=== PATIENT | female | born 1995 | race Asian ===

== ENCOUNTER 2016-06-01 16:25 | Outpatient (CLI) | payer OTHER ==
[2016-06-01 16:40] VITALS: BMI 36.2
[2016-06-01 18:10] LABS: ABSOLUTE NEUTROPHIL COUNT 9.6 K/mm3 (1.8-7.7); BASO % 0.2 % (0.2-1.0); EOS # 0.1 (0.0-0.5); EOS % 0.7 % (0.9-2.9); HEMATOCRIT 32.7 % (37.0-47.0); HEMOGLOBIN 10.9 gm/l (12.0-16.0); IMM NEUT # 0.1 K/mm3 (0-0.2); IMM NEUT% 0.9 % (0-1); LYMPH # 1.9 (1.0-4.8); MEAN CELL VOLUME 85.6 fl (81.0-99.0); MEAN CORPUSCULAR HEMOGLOBIN 28.5 pg (27.0-31.0); MEAN CORPUSCULAR HGB CONC 33.3 g/dl (33.0-37.0); MEAN PLATELET VOLUME 10.9 fl (7.4-10.4); MONO # 1.1 (0.0-0.8); MONO % 8.6 % (4-12); NEUT % 74.6 % (43-75); PLATELET COUNT 235 K/mm3 (130-400); RED CELL DISTRIBUTION WIDTH 12.5 % (11.5-14.5)
[2016-06-01 18:17] LABS: ALB/GLOB RATIO 0.9 (>1.0); ALBUMIN 3.2 gm/dL (3.5-5.7); CALCIUM 9.2 mg/dL (8.6-10.3)
[2016-06-01 19:06] LABS: CREATININE,RANDOM URINE 51 mg/dL
--- NOTE | 2016-06-01 20:34 | PDOC36 ---
Provider Note Subject: Progress Note Note: Sonya Estrada is a at 37 weeks and 1 day who came to labor and delivery about 5pm this evening from clinic. She was found to have elevated BP's in the office at 160/90 and 150/90. In addition she had a 6lb weight gain in a week with 2 plus edema in her legs. She denied vision changes, headache, RUQ pain or decreased FM. Upon arrival labs were drawn, EFM placed and vital signs done. Since arrival her BPs have been: 135/75, 122/59, 129/73 and 133/69. She has denied any headaches, vision changes, significant shortness of breath or decreased movement. She c/o pain in the right side of her abdomen which improved with moving position. FHR is 135, accels, no decels and moderate variability. Cervical exam was deferred due to no contractions. Uterine irritability noted on the monitor and pt feels them as Farshad Tierney. Patient denies any stress today. We reviewed her labs and vital signs since arrival. There is nothing concerning at this point. However, given the elevated pressures she bears watching closely and a return to clinic is required on Saturday. Patient will call to schedule and I will task the front desk coordinator to call her too. O/ Labs are all normal - liver enzymes WNL P/C Ratio 137 UA neg protein Cervix deferred FHR 135, accels, no decels, moderate variability BPs as noted above Afebrile Neg clonus and DTRs plus 1 3 plus edema of both feet and ankles, not pitting Lungs clear to ausculation A/ Term Normotensive Cat 1 FHR P/ Return to clinic Saturday for BP check Return to labor and delivery with headache that doesn't improve with rest, hydration or medication, vision changes, RUQ pain, worsening of swelling, decreased FM and contractions.
== END 2016-06-01 19:54 | disposition home or self-care (01) ==
LOC: FBCOUT 16:25 → FBC 16:26 → FBCOUT 19:54
PROVIDERS: ATTEND Advanced Practice Midwife
DX: O26.893 Other specified pregnancy related conditions, third trimester (principal); R03.0 Elevated blood-pressure reading, without diagnosis of hypertension; O12.03 Gestational edema, third trimester; Z3A.37 37 weeks gestation of pregnancy

== ENCOUNTER 2016-06-14 06:34 | Inpatient (IN) | payer OTHER ==
[2016-06-14] MEDS ORDERED: OXYTOCIN IN LR 500 ML IV ONE (07:18)
[2016-06-14] MEDS ORDERED: IV START KIT ONE (07:22)
[2016-06-14] MEDS ORDERED: LIDOCAINE Viscous 2% 15 ML UDCUP ONE (07:22)
[2016-06-14] MEDS ORDERED: OXYTOCIN 10 UNITS/ML VIAL ONE (07:22)
[2016-06-14] MEDS ORDERED: MINERAL OIL 25 ML BOT ONE (07:22)
[2016-06-14] MEDS ORDERED: PUMP TUBING ONE (07:22)
[2016-06-14] MEDS ORDERED: LIDOCAINE 1% (PRES FREE) 30 ML VIAL ONE (07:22)
[2016-06-14] MEDS: LACTATED RINGERS 1,000 ML IV PRN ×2 (07:30→11:58)
[2016-06-14 08:10] VITALS: BMI 36.6
[2016-06-14 08:14] LABS: HEMOGLOBIN 10.9 gm/l (12.0-16.0); MEAN CELL VOLUME 85.7 fl (81.0-99.0); MEAN CORPUSCULAR HEMOGLOBIN 28.3 pg (27.0-31.0); RED CELL DISTRIBUTION WIDTH 12.8 % (11.5-14.5)
--- NOTE | 2016-06-14 10:38 | PCMAN ---
OB Admission Note - History : 1 Term: 0 : 0 Abortions (S&E): 0 Livin EDC:: 06/21/16 Gestational Age (weeks): 39 Days (#/7): 0 Admit Cervical Dilation:: 1 Admit Cervical Effacement (%):: 50 Admit Station:: -2 Membrane Status: Intact Contractions: Yes Contraction Frequency:: occasional Heart Rate:: 140 (late decel) Status:: Cat 1 with a period of Cat 2 after one prolonged contraction EFW:: 7.5lbs Summary of Course:: Regina is a 20 yo at 39 weeks here for IOL for gestational hypertension. She initiated care at 19 weeks with the midwives for a total of 9 visits. Her initial weight was 178 with a BMI of 29. Her TWG since 19 weeks was 42 lbs. Normal 20 week anatomy scan and negative quad marker. Her was complicated by: anemia - Hgb 10.2 at 27 weeks, took Fe, resolved by 38 weeks, Hgb 11.1 mild range hypertension first appeared at 27 weeks normal PIH labs at 37 and 38 weeks. Has had +2 edema with one interval weight gain of 12 lbs in 2 weeks between 34 & 36 weeks, otherwise asymptomatic for severe range symptoms At 30 weeks her partner was jailed for drug use and Natalie obtained a restraining order against him at that time. 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 Denies contractions, LOF, vag bleeding, RENAE's vision changes, and epigastric pain. - Physical Exam General: Afebrile Psych/Mental Status: Mood/Affect Appropriate, Judgment/Insight Intact Neurological: Grossly Intact, Alert, Oriented x 4 HEENT: Atraumatic Lungs: Clear to Auscultation Bilaterally, Normal Air Movement Cardiovascular: Regular Rate and Rhythm, Normal S1, Normal S2 Abdomen: Other (EFW 7.5 lbs Leopolds JOSE) Genitourinary: Normal Female Genitalia Rectal Exam: Deferred Extremities: Full ROM, Edema (+1 dependent edema) Skin: Normal Color - Problems (1) Gestational hypertension Qualifiers: Trimester: third trimester Qualifier Code: (O13.3) Gestational [ -induced] hypertension without significant proteinuria, third trimester Status: Acute Code: O13.9 Assessment/Plan: A: 20yo at 39w0d gestational hypertension GBS positive Complicated social history Fetus overall Cat 1 with period of Cat 2 Lomeli Score 5 Not in labor P: Admit to [facility] for IOL Natalie desires unmedicate and does not have family present for support during her labor. Plan for CNM and RN labor support throughout the process. Discussed cervical ripening options - discussed risks/benefits of misoprostol vs cook catheter and pt chooses cook balloon. Cook balloon placed and inflated to 50mL on each side. Patient to walk and use the ball to encourage start of labor. IV placed PCN prophylaxis to be initiated at onset of active labor or SROM. Repeat baseline PIH labs Anticipate active labor and
[2016-06-14 11:19] LABS: ALB/GLOB RATIO 1.1 (>1.0); ALBUMIN 3.3 gm/dL (3.5-5.7); CALCIUM 8.8 mg/dL (8.6-10.3)
[2016-06-14] MEDS ORDERED: DINOPROSTONE 10 MG SUP VG ONE (11:49)
--- NOTE | 2016-06-14 12:04 | PDOC36 ---
Provider Note Subject: Labor Progress Note Note: S: At 1040 am, Natalie reported that the cook catheter fell out. She denies feeling any contractions, LOF and vag bleeding. O: BP 121/78 HR 97 T 36.4C BSL 130 moderate variability, pos accels, neg decels ctx uterine irritability, appeared tachysystole, q 1-2 mins, uterus quieted on maternal L in side-lying release position palpate very mild Membranes intact SVE per RN 3cm/60%/-2 A: 20yo at 39w0d gestational hypertension GBS positive - membranes intact Complicated social history Fetus overall Cat 1 Lomeli Score 5 Not in labor P: With uterine irritability, decided to continue with cervidil for cervical ripening due to the ability to remove it in the event of hyperstimulation or non -reassurring heart tones. Patient to walk and use the ball to encourage start of labor. Patient ate breakfast prior to cervidil initiation. IV fluids to support hydration as well. Intrauterine resus measures PRN if non-reassurring FHTs occur. Remove ervidil if hyperstim occurrs. PCN prophylaxis to be initiated at onset of active labor or SROM. Baseline PIH labs drawn. Anticipate active labor and
[2016-06-14 12:51] LABS: CREATININE,RANDOM URINE 46 mg/dL
[2016-06-15] MEDS: LACTATED RINGERS 1,000 ML IV ONE ×2 (01:00→18:58)
[2016-06-15] MEDS ORDERED: EPIDURAL PUMP SET ONE (01:22)
[2016-06-15] MEDS ORDERED: FENTANYL/ROPIVACAINE EPIDURAL 250 ML EP ONE (01:22)
--- NOTE | 2016-06-15 01:40 | PDOC36 ---
Provider Note Subject: labor progress note - cervical change and epidural Note: Note: S: Natalie reports feeling contractions more painfully now, breathing through some of them and requests epidural. O: BSL 145 moderate variability, pos accels, neg decels ctx q 1-7min, lasting 20-120 seconds, continued uterine irritability, palpate moderate Membranes intact SVE: 4/85%/-2, soft, anterior BP: 136/79 T:98.6 P:76 R:20 A: 20yo at 39w1d gestational hypertension GBS positive - membranes intact Complicated social history Fetus overall Cat 1 Lomeli Score 9 Latent labor P: Cervidil removed. Epidural ordered. Encouraged hydrotherapy while IV bolus is given. Will continue with expectant management at this time given increased intensity of contractions. Reviewed initiating pitocin if contraction space. PCN prophylaxis to be initiated at onset of active labor or SROM. Baseline PIH labs normal Anticipate active labor and
[2016-06-15] MEDS: LACTATED RINGERS 1,000 ML IV PRN ×3 (01:55→12:27)
[2016-06-15] MEDS ORDERED: EPIDURAL PROCEDURE TRAY ONE (01:56)
[2016-06-15] MEDS: FENTANYL/ROPIVACAINE EPIDURAL 250 ML EP SCH ×2 (02:23→11:24)
[2016-06-15] MEDS ORDERED: NALOXONE HCL 0.4 MG/ML VIAL IV PRN (03:59)
[2016-06-15] MEDS ORDERED: EPHEDRINE SULFATE 50 MG/ML 1ML VIAL IV PRN (03:59)
[2016-06-15] MEDS ORDERED: DIPHENHYDRAMINE HCL 50 MG/1 ML VIAL IV PRN (03:59)
[2016-06-15] MEDS ORDERED: LACTATED RINGERS 500 ML IV PRN (03:59)
[2016-06-15] MEDS ORDERED: METOCLOPRAMIDE HCL 5 MG/ML 2ML VIAL IV PRN (03:59)
[2016-06-15] MEDS ORDERED: NALBUPHINE HCL 20 MG/ML AMP IV PRN (03:59)
[2016-06-15] MEDS ORDERED: ONDANSETRON 4 MG/2ML 2 ML VIAL IV PRN (03:59)
[2016-06-15] MEDS ORDERED: SODIUM CHLORIDE 0.9% 500 ML IV PRN (03:59)
[2016-06-15] MEDS ORDERED: PENICILLIN G POTASSIUM 5 MMU in NS 0.9% (MINI-BAG PLUS) 100 ML IV ONE (06:53)
[2016-06-15] MEDS ORDERED: LACTATED RINGERS 1,000 ML IV SCH (07:00)
[2016-06-15] MEDS ORDERED: PENICILLIN G POTASSIUM 5 MMU VIAL ONE (07:15)
[2016-06-15] MEDS ORDERED: NS 0.9% (MINI-BAG PLUS) 100 ML IV ONE (07:15)
[2016-06-15] MEDS ORDERED: PENICILLIN G 3 MIL UNIT PREMIX 50 ML IV ONE ×2 (11:13→15:18)
[2016-06-15] MEDS: LACTATED RINGERS 1,000 ML IV SCH ×5 (11:20→18:59)
[2016-06-15] MEDS: PENICILLIN G 3 MIL UNIT PREMIX 3 MMU in Premix (D5W) 50 ml 1 EACH IV SCH ×3 (11:20→23:10)
--- NOTE | 2016-06-15 14:55 | PDOC36 ---
Provider Note Subject: CNM Progress Note Note: S: Feeling more pressure with contractions. Still comfortable with epidural. O: Cx complete/complete/-1 2 hours ago FHR 135, category 1 most of time. Has some variable decels but not to 60 x 60 criteria Contractions q 2-4, 50, moderate A: Good labor progress P: Start pushing with coaching Offered pt new bag of epidural anesthesia vs wearing off - Pt elects to let epidural wear off, knowing we can rebolus if needed. Anticipate
[2016-06-15] MEDS ORDERED: CALCIUM CARBONATE 500 MG TAB.CHEW PO PRN (19:19)
[2016-06-15] MEDS ORDERED: MAGNESIUM HYDROXIDE 30 ML UDCUP PO PRN (19:19)
[2016-06-15] MEDS ORDERED: LANOLIN 50 APPLIC/7G TUBE TP PRN (19:19)
[2016-06-15] MEDS ORDERED: BENZOCAINE/MENTHOL 60 APPLIC/BOT TP PRN (19:19)
[2016-06-15] MEDS ORDERED: LIDOCAINE Viscous 2% 15 ML UDCUP TP ONE (19:25)
[2016-06-15] MEDS ORDERED: LIDOCAINE 1% (PRES FREE) 30 ML VIAL SUB-Q ONE (19:25)
--- NOTE | 2016-06-15 20:22 | PCMDEL ---
Delivery Note - Labor 1st stage (hr/min):: 11 hrs 57 min 2nd stage (hr/min):: 5 hrs 12 min 3rd stage (hr/min):: 0 hrs 5 min Total (hr/min):: 17 hrs 14 min Pushed (hr/min):: 3 hrs 15 min - Delivery Delivery (Date): 06/15/16 Delivery (Time): 17:46 Infant Gender: Male Weight: 8 lb 4 oz Presentation: Cephalic Position: OA Umbilical Cord: 3 Vessel Delayed Cord Clamping:: 2-3 min 1 Minute Total: 9 5 Minute Total: 9 Placenta:: gould EBL:: 350 Perineum:: left labial 1st degree, shallow perineal 1st degree Suture:: 3-0 vicryl Anesthesia/Meds:: Epidural, penicillin x 3 Length ROM:: 5 hrs 12 min Comments:: Well controlled without epis. Perineum and labia had significant edema and significant hymeneal bleeding during pushing. Baby delivered direct OA and was handed directly to mother for skin to skin. Cord clamped and cut after cord stopped pulsing. Spontaneous delivery bryanna placenta, intact and complete. IV not functional so active management of third stage of labor not done. Repair of 1st degree lacs after local infiltration with 1% lidocaine. Excellent bonding.
[2016-06-15] MEDS: IBUPROFEN 800 MG TABLET PO PRN (21:23)
[2016-06-16] MEDS: HYDROCODONE/ACETAMINOPHEN 5/325MG TABLET PO PRN ×2 (00:53→19:24)
[2016-06-16 05:58] LABS: HEMATOCRIT 21.1 % (37.0-47.0); HEMOGLOBIN 6.9 gm/l (12.0-16.0)
[2016-06-16] MEDS: IBUPROFEN 800 MG TABLET PO PRN ×2 (06:11→15:11)
[2016-06-16] MEDS: DOCUSATE SODIUM 100 MG CAPSULE PO PRN (08:27)
--- NOTE | 2016-06-16 15:07 | PDOC44 ---
- Subjective Day: 1 Sitting in bed, baby with her friend. She reports her bleeding is mild, similar to a period. Her pain is well managed with ibuprofen. She is up ad glenis to void without difficulty. She is having a difficult time with because the baby is still sleepy in the first 24hrs. Reports Flatus, Reports Pain Tolerable, Reports , Reports Lochia Light, Reports Tolerating Regular Diet - Objective Temp Pulse Resp BP Pulse Ox 98.2 F 101 16 101/42 06/16/16 08:07 06/16/16 08:07 06/16/16 08:07 06/16/16 08:07 Lab Results 06/16/16 05:30 Hgb 6.9 L D Hct 21.1 L Current Medications Generic Name Dose Route Start Last Admin Trade Name Freq PRN Reason Stop Dose Admin Acetaminophen/Hydrocodone Bitart 1 - 2 tab 06/15/16 19:19 06/16/16 00:53 [place] 5/325 PO 1 tab Q4H PRN Administration Pain (Moderate) Benzocaine/Menthol 1 applic 06/15/16 19:19 06/15/16 21:56 Dermoplast TP 1 applic PRN PRN Administration Patient Comfort Calcium Carbonate/Glycine 500 - 1,000 mg 06/15/16 19:19 Tums PO BID PRN Indigestion Docusate Sodium 100 mg 06/15/16 19:19 06/16/16 08:27 Colace PO 100 mg DAILY PRN Administration Comfort/CONSTIPATION Emollient Ointment 1 applic 06/15/16 19:19 [id number] TP PRN PRN sore nipples Ibuprofen 800 mg 06/15/16 19:19 06/16/16 06:11 Motrin PO 800 mg Q6H PRN Administration Pain (Mild) Magnesium Hydroxide 30 ml 06/15/16 19:19 Milk Of Magnesia PO BEDTIME PRN Constipation Sodium Chloride 10 ml 06/16/16 01:00 06/16/16 01:51 Normal Saline 10ml Flush IV Not Given Q8HR PIPPA Sodium Chloride 10 ml 06/15/16 19:36 Normal Saline 10ml Flush IV PRN PRN - Physical Exam General: Afebrile Psych/Mental Status: Mood/Affect Appropriate, Judgment/Insight Intact, Bonding Well Neurological: Grossly Intact, Alert, Oriented x 4, Normal Speech Lungs: Clear to Auscultation Bilaterally Cardiovascular: Regular Rate and Rhythm Breast: Soft, Skin intact, Nipples Intact Fundus: Firm, Midline, Below Umbilicus - Problems:Assessment/Plan (1) (normal spontaneous vaginal delivery) Status: Acute Assessment/Plan: A: PPD #1 S/P exclusively stable and up ad glenis Routine recovery P: Reviewed warning s/s and when to call anticipate discharge home tomorrow Disposition: Anticipate DC Home Tomorrow
[2016-06-16] MEDS ORDERED: IV START KIT ONE (20:39)
[2016-06-16] MEDS ORDERED: IRON SUCROSE COMPLEX 200 MG in SODIUM CHLORIDE 0.9% 100 ML IV ONE ×2 (20:44→21:10)
[2016-06-16] MEDS ORDERED: PUMP TUBING ONE (22:17)
[2016-06-17] MEDS: IBUPROFEN 800 MG TABLET PO PRN (05:17)
[2016-06-17] MEDS: HYDROCODONE/ACETAMINOPHEN 5/325MG TABLET PO PRN (05:17)
[2016-06-17 07:22] VITALS: BP 125/84
[2016-06-17] MEDS: DOCUSATE SODIUM 100 MG CAPSULE PO PRN (07:22)
[2016-06-17 09:58] LABS: HEMOGLOBIN 6.8 gm/l (12.0-16.0)
--- NOTE | 2016-06-17 11:17 | PDOC39B ---
Hospital Course: ADMIT DATE: 06/14/16 DISCHARGE DATE: 06/17/16 ADMISSION DIAGNOSES: gestational hypertension at term PROCEDURES: Induction of labor for gestational hypertension HISTORY OF PRESENT ILLNESS: 20 year old G1 T0 L0 at 39 weeks 0 days presenting for induction of labor due to gestational hypertension. Achieved an . Had a significant drop in her H/H despite normal blood loss . Symptomatic with tachycardia and shortness of breath while ambulating on . Was counseled by CNM regarding blood transfusion vs IV iron. Pt opted for IV iron and received 1 dose. She has been normotensive . HOSPITAL COURSE: By day of discharge the patient is ambulating, eating, voiding , and passing flatus without difficulty. Pain is controlled and lochia is appropriate. She is exclusively and has a BABIES clinic appt scheduled for this Saturday. She reports that she is no longer short of breath while ambulating, although does note a racing heartbeat. Otherwise, she denies lightheadedness, dizziness, and headache. Lochia has been getting clinic nurse. She does not plan to be sexually active for the time being, so she does not desire contraception. She has good social support from her parents, who she lives with , and her [id number], who has been with her for her hospital stay. - Physical Exam Vital Signs: Temp Pulse Resp BP Pulse Ox 98.4 F 111 16 125/84 96 06/17/16 07:18 06/17/16 07:18 06/17/16 07:18 06/17/16 07:18 06/17/16 00:50 General: Afebrile Psych/Mental Status: Mood/Affect Appropriate, Judgment/Insight Intact, Bonding Well Lungs: Clear to Auscultation Bilaterally Cardiovascular: Regular Rate and Rhythm, Other (Rapid heart rate) Breast: Soft, Skin intact, Nipples Intact Fundus: Firm, Midline, Below Umbilicus Genitourinary: Normal Female Genitalia, Other (Minor swelling) Lochia: Light Extremities: Full ROM Skin: Normal Color - Discharge Diagnosis (1) care and examination of lactating mother Status: Acute Assessment/Plan: A: Day 2 Lochia stable -some challenges with latch Anemia (see separate note) P: : discussed normal feeding patterns at this age, encouraged skin -to-skin and on-demand feeds, BABIES clinic appt on Saturday Education: handout given and reviewed. Warning signs discussed Contraception: not sexually active, declines Rx: ibuprofen, colace, ferrous sulfate Social support: lives with parents, who are very supportive. Follow-up: 05/29/16 at 3:20pm in [place] (2) Anemia due to blood loss Status: Acute Assessment/Plan: A: Anemia secondary to blood loss Symptomatic with tachycardia Other vitals stable Denies other symptoms H/H unchanged from 06/16/16 S/p 1 dose IV venofer on 06/16/16 P: Reviewed option for ongoing IV iron transfusions with STEPS vs PO iron. Pt ops for PO iron. TID ferrous sulfate prescribed and encouraged to Colace also prescribed Encouraged to make time for extra rest and PO hydration, especially over the next few weeks Reviewed s/s anemia and when to call CNM or seek emergency care. - Discharge Plan Condition: Stable Disposition: Home Instruction Forms: Vaginal Discharge Instructions Additional Instructions: Congratulations on David's ! You have a 2-week follow-up visit with the midwives scheduled fro 05/29/16 at 3:20pm in [place]. If you have any questions, concerns, or need to reschedule, please call the clinic at [phone]. Due to your anemia, it is important that you make time for extra rest and hydration, especially in the first 2 weeks after the . Signs of anemia include a racing heart rate, dizziness, headache, shortness of breath, and lightheadedness. If you develop any of these symptoms, please call the clinic. Prescriptions: Docusate Sodium [COLACE 100 MG CAPSULE (SHF)] 100 mg PO DAILY PRN #30 cap PRN Reason: Constipation Ibuprofen [Motrin] 1 tab PO Q6H PRN #30 tablet PRN Reason: Pain FERROUS SULFATE (65 Fe) [IRON FERROUS SULFATE 325 MG TABLET (SHF)] 325 mg PO TID #90 tab
== END 2016-06-17 12:20 | disposition home or self-care (01) | DRG 775 ==
LOC: FBC 06:56 → EDSTATUS 06-21 06:15
PROVIDERS: ADMIT Advanced Practice Midwife; ATTEND Advanced Practice Midwife
PROC: 0U7C7ZZ Dilation of Cervix, Via Natural or Artificial Opening (ICD-10-PCS; 2016-06-14)
PROC: 10E0XZZ Delivery of Products of Conception, External Approach (ICD-10-PCS; principal; 2016-06-15)
PROC: 0HQ9XZZ Repair Perineum Skin, External Approach (ICD-10-PCS; 2016-06-15)
PROC: 00HU33Z Insertion of Infusion Device into Spinal Canal, Percutaneous Approach (ICD-10-PCS; 2016-06-15)
PROC: 3E033GC Introduction of Other Therapeutic Substance into Peripheral Vein, Percutaneous Approach (ICD-10-PCS; 2016-06-17)
DX: O13.4 Gestational [pregnancy-induced] hypertension without significant proteinuria, complicating childbirth (principal); D62 Acute posthemorrhagic anemia; O76 Abnormality in fetal heart rate and rhythm complicating labor and delivery; O99.02 Anemia complicating childbirth; O99.824 Streptococcus B carrier state complicating childbirth; Z60.8 Other problems related to social environment; O62.4 Hypertonic, incoordinate, and prolonged uterine contractions; O70.0 First degree perineal laceration during delivery; O90.81 Anemia of the puerperium; Z3A.39 39 weeks gestation of pregnancy; Z37.0 Single live birth